=== PATIENT | male | born 1980 | race Caucasian/White ===

== ENCOUNTER 2023-08-05 14:21 | Emergency (ER) | payer SELFPAY ==
[~2023-08-05] VITALS: Ht 187.9 cm; Wt 88.5 kg
[2023-08-05] MEDS ORDERED: Lidocaine Hydrochloride 2 ML AMP SC ONE (14:50)
== END 2023-08-05 15:18 | disposition home or self-care (01) ==
LOC: ED 14:21
DX: S01.511A Laceration without foreign body of lip, initial encounter (principal); W21.04XA Struck by golf ball, initial encounter; Y93.89 Activity, other specified; Y92.009 Unspecified place in unspecified non-institutional (private) residence as the place of occurrence of the external cause; Y99.8 Other external cause status